=== PATIENT | male | born 1985 | race Caucasian/White ===

== ENCOUNTER 2018-04-15 16:11 | Emergency (ER) | payer OTHER ==
[~2018-04-15] VITALS: Ht 180.3 cm; Wt 108.9 kg
[2018-04-15] MEDS ORDERED: KETOROLAC 60 MG/2 ML VIAL IM ONE (16:15)
[2018-04-15 16:18] VITALS: BP 162/87
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
--- NOTE | 2018-04-15 16:52 | NUR ---
PATIENT BACK FROM XRAY
--- NOTE | 2018-04-15 18:02 | NUR ---
APPLIED RADHA WRAP TO RIGHT ANKLE WITHOUT ANY ISSUES
[2018-04-15 18:18] VITALS: BP 135/78
--- NOTE | 2018-04-15 18:18 | NUR ---
Patient discharged with v/s stable. Written and verbal after care instructions given and explained. Patient alert, oriented and verbalized understanding of instructions. Ambulatory with steady gait. All questions addressed prior to discharge. ID band removed. Patient advised to follow up with PMD. Rx of MOTRIN AND NORCO given. Patient educated on indication of medication including possible reaction and side effects. Opportunity to ask questions provided and answered.
== END 2018-04-15 18:18 | disposition home or self-care (01) ==
LOC: MED 16:11
DX: S90.32XA Contusion of left foot, initial encounter (principal); S60.211A Contusion of right wrist, initial encounter; S93.401A Sprain of unspecified ligament of right ankle, initial encounter; W11.XXXA Fall on and from ladder, initial encounter; Y93.89 Activity, other specified; Y92.89 Other specified places as the place of occurrence of the external cause; Y99.8 Other external cause status
CPT/HCPCS: 73110; 73610; 73630; 96372; 99283; J1885

== ENCOUNTER 2019-01-20 09:57 | Emergency (ER) | payer OTHER ==
[~2019-01-20] VITALS: Ht 182.9 cm; Wt 124.7 kg
[2019-01-20 10:01] VITALS: BP 141/79
[2019-01-20 10:38] VITALS: BP 138/80
== END 2019-01-20 10:38 | disposition home or self-care (01) ==
LOC: MED 09:57
DX: H01.001 Unspecified blepharitis right upper eyelid (principal)
CPT/HCPCS: 99283

== ENCOUNTER 2019-06-07 18:41 | Emergency (ER) | payer OTHER ==
[~2019-06-07] VITALS: Ht 177.8 cm; Wt 119.7 kg
[2019-06-07 19:09] VITALS: BP 153/101
[2019-06-07 19:47] VITALS: BP 153/101
== END 2019-06-07 19:48 | disposition home or self-care (01) ==
LOC: MED 18:41
DX: Z00.8 Encounter for other general examination (principal)
CPT/HCPCS: 99281

== ENCOUNTER 2019-09-13 09:12 | Emergency (ER) | payer OTHER ==
[~2019-09-13] VITALS: Ht 180.3 cm; Wt 117.9 kg
[2019-09-13 09:34] VITALS: BP 158/80
--- NOTE | 2019-09-13 09:44 | NUR ---
Patient taken to X-ray via wheelchair by tech.
--- NOTE | 2019-09-13 09:48 | NUR ---
Patient returned from X-ray.
[2019-09-13] MEDS ORDERED: LIDOCAINE MPF 1% 10 MG/ML VIAL INJ ONE (11:35)
[2019-09-13] MEDS ORDERED: HYDROcodone/APAP 5/325 MG 1 TAB TAB PO ONE (11:55)
[2019-09-13 13:11] VITALS: BP 158/96
--- NOTE | 2019-09-13 13:13 | NUR ---
Patient discharged with v/s stable. Written and verbal after care instructions given and explained. Patient alert, oriented and verbalized understanding of instructions. Ambulatory with steady gait. All questions addressed prior to discharge. ID band removed. Patient advised to follow up with PMD. Rx of norco, ibu given. Patient educated on indication of medication including possible reaction and side effects. Opportunity to ask questions provided and answered.
== END 2019-09-13 13:13 | disposition home or self-care (01) ==
LOC: MED 09:12
DX: S62.336A Displaced fracture of neck of fifth metacarpal bone, right hand, initial encounter for closed fracture (principal); J45.909 Unspecified asthma, uncomplicated; W22.01XA Walked into wall, initial encounter; Y93.89 Activity, other specified; Y92.89 Other specified places as the place of occurrence of the external cause; Y99.8 Other external cause status
CPT/HCPCS: 26742; 73130; 99284; J2001